=== PATIENT | female | born 1960 | race Caucasian/White ===

== ENCOUNTER 2018-04-25 12:54 | Emergency (ER) | payer OTHER ==
--- NOTE | 2018-04-25 12:59 | EDM.PDOC ---
ED HPI GENERAL MEDICAL PROBLEM - General Chief Complaint: Lower Extremity Injury/Pain Stated Complaint: DROP FOOT OVER WEEKEND.[phone] Time Seen by Provider: 04/25/18 12:58 Source of Information: Reports: Patient, RN, RN Notes Reviewed History Limitations: Reports: No Limitations - History of Present Illness INITIAL COMMENTS - FREE TEXT/NARRATIVE: Pt c/o noticing a Rt foot drop on Wednesday that caused her to fall twice. She states she has had a non-specific "gait change" for about a year, but didn't notice any foot drop until it caused her to fall on Wednesday. Pt has an appointment with her neurologist next week, and plans to have this evaluated at that time. She is in [place] on a trip, and decided to come and see if there is anything that could be done to prevent her from falling until she sees the neurologist. Pt reports Hx of back pain and sciatica, but states it isn't flared up "too bad" at this time. She denies numbness, or tingling, loss of bowel or bladder control, or any upper extremity numbness or weakness. Onset: Unknown/Unsure Onset Date: 04/23/18 Duration: Constant Location: Reports: Lower Extremity, Right Quality: Reports: Other (denies pain) Severity: Moderate Improves with: Reports: None Worsens with: Reports: None Associated Symptoms: Reports: No Other Symptoms Generalized Pain Score (Numeric/FACES): 6 - Related Data Allergies Allergy/AdvReac Type Severity Reaction Status Date / Time hydromorphone [From Dilaudid] Allergy Cannot Verified 04/25/18 12:59 Remember Home Meds: Home Meds Gabapentin [Neurontin] 100 mg PO BEDTIME 04/25/18 [History] Thyroid,Pork [Rocky Thyroid] 240 mg PO DAILY 04/25/18 [History] lamoTRIgine [Lamotrigine ER] 400 mg PO BEDTIME 04/25/18 [History] Past Medical History Musculoskeletal History: Reports: Back Pain, Chronic, Fibromyalgia Psychiatric History: Reports: Bipolar Endocrine/Metabolic History: Reports: Hypothyroidism Social & Family History - Living Situation & Occupation Living situation: Reports: , with Spouse Review of Systems - Review of Systems Review Of Systems: ROS reveals no pertinent complaints other than HPI. ED EXAM, GENERAL - Physical Exam Exam: See Below Exam Limited By: No Limitations General Appearance: Alert, WD/WN, No Apparent Distress Head: Atraumatic, Normocephalic Neck: Normal Inspection Respiratory/Chest: No Respiratory Distress Cardiovascular: Normal Peripheral Pulses Peripheral Pulses: 2+: Posterior Tibial (L), Posterior Tibial (R), Dorsalis Pedis (L), Dorsalis Pedis (R) Back Exam: Full Range of Motion. No: Vertebral Tenderness Extremities: Non-Tender, No Pedal Edema, Normal Capillary Refill. No: Joint Swelling Neurological: Alert, Oriented, Normal Cognition, Abnormal Gait (Rt plantar flexion foot drop), Sensory/Motor Deficit (Rt plantar flexed foot drop with limited, and very weak +1/4 partial dorsiflexion on the Rt. No significant sensory deficits. Rt patellar reflex +1/4 compared to left patellar reflex +3/4 , no proximal motor weakness of the B/L lower extremities.) ED TRAUMA EXTREMITY PROCEDURES - Splinting Right Lower Extremity Splint Site: Rt ankle Pre-Procedure NV Status: Normal Post-Procedure NV Status: Normal Splint Material: Fiberglass Splint Design: Posterior (walking) Applied & Form Fitted By: Provider Provider Post-Splint Application NV Check: NV Status Normal Complications: No Course - Vital Signs Last Recorded V/S: Last Vital Signs Temp 36.7 C 04/25/18 13:02 Pulse 75 04/25/18 13:02 Resp 18 04/25/18 13:02 BP 151/78 H 04/25/18 13:02 Pulse Ox 100 04/25/18 13:02 Departure - Departure Time of Disposition: 13:32 Disposition: Home, Self-Care 01 Condition: Good Clinical Impression: Foot drop, right - Discharge Information Instructions: Neurapraxia Forms: ED Department Discharge Additional Instructions: Wear ankle fixation splint and use cane to reduce falls risk. Follow up with your neurologist as scheduled for further evaluation and treatment.
== END 2018-04-25 13:38 | disposition home or self-care (01) ==
LOC: DL.ED 12:54
DX: M21.371 Foot drop, right foot (principal); E03.9 Hypothyroidism, unspecified; Z88.6 Allergy status to analgesic agent; Z79.899 Other long term (current) drug therapy
CPT/HCPCS: 29405; 29515; 99283